=== PATIENT | female | born 1980 | race Caucasian/White ===

== ENCOUNTER → 2018-12-27 | Outpatient (CLI) | payer BC ==
[~2018-12-27] MED LIST: ACET-789 PO; ACET325T49 PO; ACIPHEX; ALBU0.632 IH; ALBU17AE23 IH; ALBU17AE3 IH; ALPR0.2550 PO; BENZ200C25 PO; Bentyl; CEFD300C3 PO; CYCL10TA9 PO; DEPO PROVERA IM; DEXL30CA2 PO; DICY20TA10 PO; FLUT1DIS26 IH; Flagyl; LORA10TA7 PO; LUBI8CAP2 PO; Lactulose; Loratadine; METH4TAB PO; METR500T PO; MONT10TA21 PO; MULT-608 PO; MVI; NABU750T PO; NAPR-243 PO; NORT25CA PO; ORPH100T PO; PAMELOR; PNT40TEC PO; PRM25T PO; Phenergan; RABE20TA PO; SCR1T1 PO; TRAM50TA2 PO; Tramadol; Xanax; acyclovir PO
[2018-12-27 11:03] LABS: BASOPHILS % (AUTO) 0 % (0-10); EOSINOPHILS # (AUTO) 0.1 10^3/uL (0.0-0.3); EOSINOPHILS % (AUTO) 2 % (0-10); HEMATOCRIT 37 % (35-52); HEMOGLOBIN 12.5 G/DL (11.5-16.0); LYMPHOCYTES # (AUTO) 1.3 X 10^3 (1.0-4.0); LYMPHOCYTES % (AUTO) 25 % (12-44); MEAN CORPUSCULAR HEMOGLOBIN 28 PG (25-34); MEAN CORPUSCULAR HGB CONC 34 G/DL (32-36); MEAN CORPUSCULAR VOLUME 81 FL (80-99); MEAN PLATELET VOLUME 10.1 FL (7.4-10.4); MONOCYTES # (AUTO) 0.5 X 10^3 (0.0-1.0); MONOCYTES % (AUTO) 10 % (0-12); NEUTROPHILS # (AUTO) 3.4 X 10^3 (1.8-7.8); NEUTROPHILS % (AUTO) 63 % (42-75); PLATELET COUNT 340 10^3/uL (130-400); RED CELL DISTRIBUTION WIDTH 13.8 % (10.0-14.5); WHITE BLOOD COUNT 5.3 10^3/uL (4.3-11.0)
--- NOTE | 2018-12-27 11:54 | Diagnostic Imaging Report ---
EXAMINATION: PA and lateral chest 11:28 AM. INDICATION: Cough. FINDINGS: The heart size is within normal limits and stable when compared to 11/18/2014. The lungs are clear. There is no sign of failure, pneumonia or pleural effusion. Mediastinum is not widened. The osseous structures are intact. The levoscoliosis of the lower thoracic spine seen previously is again evident and no different. IMPRESSION: There is no evidence for active disease. When compared to the prior study, there has been no significant change. Dictated by: Dictated on workstation # [id number]
== END ==
LOC: LAB 10:39
PROVIDERS: ATTEND Nurse Practitioner Family
DX: R05 Cough (principal)
CPT/HCPCS: 36415; 71046; 85025

== ENCOUNTER → 2020-06-27 | Outpatient (CLI) | payer BC, OTHER ==
--- NOTE | 2020-06-27 14:55 | Diagnostic Imaging Report ---
EXAMINATION: CT Abdomen Pelvis without contrast. TECHNIQUE: Multiple contiguous axial images were obtained through the abdomen and pelvis without the use of intravenous contrast. All CT scans use one or more of the following dose optimizing techniques: automated exposure control, MA and/or KvP adjustment based on a patient size and exam type, or iterative reconstruction. HISTORY: Left flank pain COMPARISON: 01/07/2012 FINDINGS: Limited views of the lower thorax are unremarkable. The liver is normal without focal lesion. There is no biliary ductal dilation. Tiny gallstone is present. Pancreas is normal. Spleen is normal. Adrenal glands are normal. The kidneys are normal. There is no hydronephrosis. Urinary bladder is normal. No renal or ureteral stones are seen. There are few phleboliths in pelvis. Visualized bowel is normal in caliber without obstruction or inflammation. There is a small fat-containing umbilical hernia. No free fluid or air. No abdominal or pelvic lymphadenopathy. Aorta is normal in caliber without aneurysm. There are no suspicious osseus lesions. IMPRESSION: 1. No acute abnormality in the abdomen or pelvis. No renal or ureteral stones. Dictated by: Dictated on workstation # [id number]
== END ==
LOC: RAD FS 14:20
PROVIDERS: ATTEND Nurse Practitioner Family
DX: R10.32 Left lower quadrant pain (principal); R31.9 Hematuria, unspecified
CPT/HCPCS: 74176

== ENCOUNTER → 2020-12-01 | Outpatient (CLI) | payer OTHER ==
--- NOTE | 2020-12-01 13:56 | Diagnostic Imaging Report ---
INDICATION: Shortness of breath. TIME OF EXAM: 1:43 PM CORRELATION is made with prior chest 12/27/2018. FINDINGS: The heart size is normal. The pulmonary vascularity is unremarkable. The lungs are clear. No infiltrate, effusion or pneumothorax is detected. IMPRESSION: No acute cardiopulmonary process is detected. Dictated by: Dictated on workstation # [id number]
== END ==
LOC: RAD FS 13:39
PROVIDERS: ATTEND Nurse Practitioner Family
DX: J45.41 Moderate persistent asthma with (acute) exacerbation (principal)
CPT/HCPCS: 71046

== ENCOUNTER → 2021-01-23 | Outpatient (CLI) | payer OTHER ==
--- NOTE | 2021-01-23 18:53 | Diagnostic Imaging Report ---
PROCEDURE: CT sinuses without contrast TECHNIQUE: Multiple contiguous axial images were obtained through the sinuses without the use of intravenous contrast. Coronal and sagittal reformations were then performed. Auto Exposure Controls were utilized during the CT exam to meet ALARA standards for radiation dose reduction. INDICATION: Chronic sinusitis. FINDINGS: Paranasal sinuses are well-aerated. There are no air-fluid levels. There is a 10 mm polyp along the posterior medial wall of the right maxillary sinus. The nasal septum is midline. Nasal turbinates appear normal. The ostiomeatal complexes are normal. No bony abnormalities. IMPRESSION: There is a solitary polyp along the posterior medial wall of the right maxillary sinus. Paranasal sinuses otherwise are clear. Dictated by: Dictated on workstation # [id number]
== END ==
LOC: RAD FS 15:00
PROVIDERS: ATTEND Plastic Surgery Plastic Surgery Within the Head and Neck
DX: J33.8 Other polyp of sinus (principal); J32.9 Chronic sinusitis, unspecified
CPT/HCPCS: 70486

== ENCOUNTER 2021-01-29 12:55 | Outpatient (CLI) | payer OTHER ==
[~2021-01-29] VITALS: Ht 162.6 cm; Wt 88.6 kg
[2021-01-29] MEDS ORDERED: POTA-51 PO (13:35)
[2021-01-29] MEDS ORDERED: RT-ALBUINH INH (13:35)
[2021-01-29] MEDS ORDERED: BUDE10.2 IH (13:35)
[2021-01-29] MEDS ORDERED: CALC-654 PO (13:35)
[2021-01-29] MEDS ORDERED: ALBU0.63 IH (13:35)
[2021-01-29] MEDS ORDERED: FLUO40CA12 PO (13:35)
[2021-01-29] MEDS ORDERED: CELE200C PO (13:35)
[2021-01-29] MEDS ORDERED: MONT10TA32 PO (13:35)
[2021-01-29] MEDS ORDERED: LORA10TA7 PO (13:35)
[2021-01-29] MEDS ORDERED: PANT40TA52 PO (13:35)
[2021-01-31] MEDS ORDERED: ACHD5005 PO (11:40)
[2021-01-31] MEDS ORDERED: DOCU-143 PO (11:40)
== END 2021-01-29 13:48 | disposition home or self-care (01) ==
LOC: PREOP 12:55
PROVIDERS: ATTEND Surgery
DX: Z01.818 Encounter for other preprocedural examination (principal)

== ENCOUNTER 2021-01-31 09:59 | Day surgery (SDC) | payer OTHER ==
[~2021-01-31] VITALS: Ht 162 cm; Wt 88.6 kg
[2021-01-31] VITALS (11 sets, daily range): BP systolic 114–134; BP diastolic 64–85
[~2021-01-31 09:59] MED LIST changes: +ALBU0.63 IH; +BUDE10.2 IH; +CALC-654 PO; +CELE200C PO; +FLUO40CA12 PO; +MONT10TA32 PO; +PANT40TA52 PO; +POTA-51 PO; +RT-ALBUINH INH
[2021-01-31] MEDS ORDERED: LIDOCAINE/EPI 1%-1:100,000 (XYLOCAINE) 20ML ONE (10:03)
[2021-01-31] MEDS ORDERED: IOPAMIDOL 61% 30 ML (ISOVUE 300) VIAL ONE (10:03)
[2021-01-31] MEDS ORDERED: LIDOCAINE PF 2% 5 ML (XYLOCAINE) VIAL ONE (10:06)
[2021-01-31] MEDS ORDERED: ONDANSETRON 4 MG/2 ML (SDV) Z0FRAN ONE (10:06)
[2021-01-31] MEDS ORDERED: proPOfol 200 MG/20 ML (DIPRIVAN) VIAL IV ONE (10:06)
[2021-01-31] MEDS ORDERED: ROCURONIUM 10 MG/ML 5 ML SYRINGE IV ONE (10:06)
[2021-01-31] MEDS ORDERED: MIDAZOLAM 2 MG/2 ML (VERSED) VIAL ONE (10:07)
[2021-01-31] MEDS ORDERED: fentaNYL INJ 100 MCG/2 ML AMP ONE (10:07)
--- NOTE | 2021-01-31 10:16 | Progress Note-Pre Operative ---
Pre-Operative Progress Note H&P Reviewed The H&P was reviewed, patient examined and no changes noted. Date Seen by Provider: January 31, 2021 Time Seen by Provider: 10:16 Date H&P Reviewed: January 31, 2021 Time H&P Reviewed: 10:16 Pre-Operative Diagnosis: symptomatic cholelithiasis MONICA GUILLAUME DO January 31, 2021 10:16
[2021-01-31] MEDS ORDERED: ceFAZolin 2 GM IV Premixed 50 ML IV ONE (10:30)
[2021-01-31] MEDS ORDERED: LACTATED RINGERS 1,000 ML IV PRN (10:30)
[2021-01-31 10:37] LABS: BASOPHILS % (AUTO) 1 % (0-10); EOSINOPHILS % (AUTO) 1 % (0-10); HEMATOCRIT 40 % (35-52); HEMOGLOBIN 12.9 g/dL (11.5-16.0); LYMPHOCYTES # (AUTO) 1.5 10^3/uL (1.0-4.0); LYMPHOCYTES % (AUTO) 28 % (12-44); MEAN CORPUSCULAR HEMOGLOBIN 27 pg (25-34); MEAN CORPUSCULAR HGB CONC 32 g/dL (32-36); MEAN CORPUSCULAR VOLUME 85 fL (80-99); MEAN PLATELET VOLUME 9.4 fL (9.0-12.2); MONOCYTES # (AUTO) 0.6 10^3/uL (0.0-1.0); MONOCYTES % (AUTO) 11 % (0-12); NEUTROPHILS # (AUTO) 3.2 10^3/uL (1.8-7.8); NEUTROPHILS % (AUTO) 60 % (42-75); PLATELET COUNT 297 10^3/uL (130-400); WHITE BLOOD COUNT 5.4 10^3/uL (4.3-11.0)
[2021-01-31] MEDS ORDERED: SEVOFLURANE (ULTANE) 15 ML INHAL SOLN ONE ×2 (11:06→11:40)
[2021-01-31] MEDS ORDERED: GLYCOPYRROLATE 0.2 MG/ML (ROBINUL) 2 ML VIAL ONE (11:35)
[2021-01-31] MEDS ORDERED: NEOSTIGMINE 3 MG/3 ML VIAL ONE (11:35)
--- NOTE | 2021-01-31 11:39 | Progress Note-Post Operative ---
Post-Operative Progess Note Surgeon (s)/Personnel Technician (s) Surgeon MONICA GUILLUAME DO Personnel Technician: Dr. Abrams to assist in retraction dissection and closure. Pre-Operative Diagnosis symptomatic cholelithiasis Post-Operative Diagnosis same Procedure & Operative Findings Date of Procedure 01/31/21 Procedure Performed/Findings PROCEDURE: Laparoscopic cholecystectomy with intraoperative cholangiogram. COMPLICATIONS: None. PROCEDURE: The patient was taken to the operating suite and was prepped and draped in sterile fashion. A surgical pause was performed. Just superior to the umbilicus, a 12 mm incision was made. Dissection was taken down to the fascia, which was then scored and grasped with a Jewel and the abdomen was then entered. A 0 Vicryl suture was placed in a vnsijb-gw-zkztr fashion and a Moss trocar was placed and secured. Pneumoperitoneum was achieved. A 5mm trochar place in the subxyphoid and 2 in the right upper quadrant. The gallbladder was then grasped and elevated. Adhesion to the liver were taken down using [place] with cautery. The cystic duct, and cystic artery were then dissected out. Clip was placed on the distal portion of the cystic duct which was then partially transected. An arrow catheter was inserted into the duct. The cholangiogram was then performed. No filing defects and contrast made its way into the duodenum. Catheter removed. Clips were placed on proximal portion of the cystic duct and then the duct was then transected. Clips were placed along the proximal and distal portion of the cystic artery which was then transected. Hook cautery was used to dissect the gallbladder from the gallbladder fossa achieving hemostasis. The gallbladder was placed in an Endobag and removed through the 12 mm trocar site. The abdomen was then reinspected. Copious amounts of irrigation were used to irrigate the abdomen and there were no signs of active bleeding. Hemostasis had been achieved. The 12 mm fascial defect was then closed with 0 Vicryl suture that had been placed in a dxkzaa-dk-xmbym fashion. The abdomen was then desufflated, the trocars were removed. The abdomen was then washed and dried. The skin was then closed using 4-0 Monocryl in a subcuticular fashion. The abdomen was washed and dried and Skin Affix was place over incisions. Patient tolerated the procedure well without any complications and was taken to the recovery room in stable condition. Anesthesia Type general Estimated Blood Loss Estimated blood loss (mL): minimal Specimens/Packing Specimens Removed gallbladder MONICA GUILLAUME DO January 31, 2021 11:39
[2021-01-31] MEDS ORDERED: ACHD5005 PO (11:40)
[2021-01-31] MEDS ORDERED: DOCU-143 PO (11:40)
--- NOTE | 2021-01-31 11:42 | Discharge Inst-Simple/Standard ---
Discharge Inst-Standard Discharge Medications New, Converted or Re-Newed RX: Transmitted to Pharmacy Patient Instructions/Follow Up Plan of Care/Instructions/FU: 2 weeks Jelani Activity as Tolerated: No Discharge Diet: Regular Diet Other Inst to Patient Follow up Appt: Make appointment for 2 weeks. Instructions: No lifting greater than 10 pounds. No strenuous activity. May shower in 24 hours, no tub bath or soaking. Use incentive spirometer at home as directed. No Smoking Skin/Wound Care: You have special glue over incision, it will fall off on it's own. Symptoms to Report: Appetite Changes, Extremity Discoloration, Numbness/Tingling, Swelling Increased, Bleeding Excessive, Eyesight Changes, Pain Increased, Urine Color Change, Constipation(Persistent), Fever over 101 degree F, Pain/Pressure in chest, Urinating Difficulty, Cough Up/Vomit Blood, Heart Beat Irreg/Pounding, Pain/Pressure in jaw, Vaginal Bleeding Increase, Cramps in feet or legs, Lightheadedness, Pain/Pressure in shoulder, Diarrhea(Persistent), Memory Changes Suddenly, Questions/Concerns, Weight gain consecutive days, Dizziness/Fainting, Nausea/Vomiting, Shortness of Breath, Weight gain over 2 pounds. If eyes or skin turn yellow notify physician. If questions or concerns contact your physician Or seek help at emergency department. MONICA GUILLAUME DO January 31, 2021 11:42
--- NOTE | 2021-01-31 11:55 | Anesthesia-General Post-Op ---
General Patient Condition Mental Status/LOC: Same as Preop Cardiovascular: Satisfactory Nausea/Vomiting: Absent Respiratory: Satisfactory Pain: Controlled Complications: Absent Post Op Complications Complications None Follow Up Care/Instructions Patient Instructions None needed. Anesthesia/Patient Condition Patient Condition Patient is doing well, no complaints, stable vital signs, no apparent adverse anesthesia problems. No complications reported per nursing. NIKOLAY ORDONEZ CRNA January 31, 2021 11:55
[2021-01-31] MEDS ORDERED: MEPERIDINE (DEMEROL) INJ 50 MG/ML IVP ONE (12:00)
[2021-01-31] MEDS ORDERED: morphine INJ 10 MG/ML 1ML (SYR OR VIAL) IVP ONE (12:00)
[2021-01-31] MEDS ORDERED: HYDROmorphone 2 MG/ML VIAL (DILAUDID) IV ONE (12:00)
[2021-01-31] MEDS ORDERED: ONDANSETRON 4 MG/2 ML (SDV) Z0FRAN IVP PRN (12:00)
[2021-01-31] MEDS ORDERED: PROMETHAZINE INJ 25 MG/ML (PHENERGAN) AMP IVP ONE (12:00)
--- NOTE | 2021-01-31 13:36 | Diagnostic Imaging Report ---
Indication: Fluoroscopy during intraoperative cholangiogram. Fluoroscopy was provided in the OR during intraoperative cholangiogram. 11 seconds of fluoroscopy time was utilized. 58 images were obtained. Images demonstrate contrast being injected via the cystic duct remnant. Intrahepatic and extra hepatic bile ducts are normal caliber. There are no filling defects. Contrast flows into the duodenum. IMPRESSION: Fluoroscopy during intraoperative cholangiogram. Dictated by: Dictated on workstation # [id number]
== END 2021-01-31 13:35 ==
LOC: SDC 09:59
PROVIDERS: ATTEND Surgery
DX: K81.1 Chronic cholecystitis (principal); K21.9 Gastro-esophageal reflux disease without esophagitis; J45.909 Unspecified asthma, uncomplicated; F31.9 Bipolar disorder, unspecified; F41.9 Anxiety disorder, unspecified; Z79.899 Other long term (current) drug therapy; Z88.8 Allergy status to other drugs, medicaments and biological substances
CPT/HCPCS: 36415; 76000; 84703; 85025; 87081; 88304; 94664

== ENCOUNTER → 2021-04-16 | Outpatient (CLI) | payer OTHER ==
[~2021-04-16] MED LIST changes: +ACHD5005 PO; +DOCU-143 PO
--- NOTE | 2021-04-16 15:53 | Diagnostic Imaging Report ---
PROCEDURE: CT head without contrast. TECHNIQUE: Multiple contiguous axial images were obtained through the brain without the use of intravenous contrast. Auto Exposure Controls were utilized during the CT exam to meet ALARA standards for radiation dose reduction. INDICATION: Syncope and tremor. CT HEAD: CT images of the head were obtained. FINDINGS: Ventricles and sulci are within normal limits for size. There is no intracranial hemorrhage identified. There is no abnormal mass effect or shift of midline structures. IMPRESSION: Unremarkable CT of the head. Dictated by: Dictated on workstation # [id number]
== END ==
LOC: RAD FS 15:33
PROVIDERS: ATTEND Nurse Practitioner Family
DX: R55 Syncope and collapse (principal); R25.1 Tremor, unspecified
CPT/HCPCS: 70450

== ENCOUNTER → 2021-04-16 | Outpatient (CLI) | payer OTHER ==
[2021-04-16 09:16] LABS: ALBUMIN 4.2 GM/DL (3.2-4.5); BILIRUBIN,TOTAL 0.2 MG/DL (0.1-1.0); CALCIUM 8.8 MG/DL (8.5-10.1); CREATININE SERUM 0.85 MG/DL (0.60-1.30); MAGNESIUM 2.1 MG/DL (1.6-2.4); POTASSIUM 3.6 MMOL/L (3.6-5.0); TOTAL PROTEIN 6.9 GM/DL (6.4-8.2)
[2021-04-16 09:25] LABS: BASOPHILS % (AUTO) 1 % (0-10); EOSINOPHILS # (AUTO) 0.1 10^3/uL (0.0-0.3); EOSINOPHILS % (AUTO) 1 % (0-10); HEMATOCRIT 36 % (35-52); HEMOGLOBIN 11.5 G/DL (11.5-16.0); LYMPHOCYTES # (AUTO) 1.6 X 10^3 (1.0-4.0); LYMPHOCYTES % (AUTO) 24 % (12-44); MEAN CORPUSCULAR HEMOGLOBIN 27 PG (25-34); MEAN CORPUSCULAR HGB CONC 32 G/DL (32-36); MEAN CORPUSCULAR VOLUME 84 FL (80-99); MEAN PLATELET VOLUME 9.5 FL (7.4-10.4); MONOCYTES # (AUTO) 0.6 X 10^3 (0.0-1.0); MONOCYTES % (AUTO) 10 % (0-12); NEUTROPHILS # (AUTO) 4.3 X 10^3 (1.8-7.8); NEUTROPHILS % (AUTO) 65 % (42-75); PLATELET COUNT 328 10^3/uL (130-400); WHITE BLOOD COUNT 6.7 10^3/uL (4.3-11.0)
== END ==
LOC: LAB FS 08:23
PROVIDERS: ATTEND Nurse Practitioner Family
DX: E87.6 Hypokalemia (principal); D64.9 Anemia, unspecified; R55 Syncope and collapse
CPT/HCPCS: 36415; 80053; 83735; 84443; 85025

== ENCOUNTER → 2021-04-27 | Outpatient (CLI) | payer OTHER | LOC: CARD 08:00 | PROVIDERS: ATTEND Nurse Practitioner Family | DX: R00.2 Palpitations (principal); R42 Dizziness and giddiness | CPT/HCPCS: 93225; 93226 ==

== ENCOUNTER 2021-08-09 09:32 | Outpatient (CLI) | payer OTHER ==
[~2021-08-09] VITALS: Ht 162.6 cm; Wt 88.6 kg
[~2021-08-09 09:32] MED LIST changes: +ACETAMINOPHEN 500 MG TAB (TYLENOL) PO PRN; +CASIRIVIMAB/IMDEVIMAB 1,200 MG in NS (IVPB) 250 ML IV ONE; +EPINEPHrine INJECTION 1 MG/ML AMP IM PRN; +ONDANSETRON 4 MG/2 ML (SDV) Z0FRAN IV PRN; +diphenhydrAMINE 50 MG/ML INJ (BENADRYL) IV PRN
[2021-08-09 09:34] VITALS: BP 129/67
[2021-08-09 11:00] VITALS: BP 127/53
== END 2021-08-09 11:00 | disposition home or self-care (01) ==
LOC: INFUSION 09:32
PROVIDERS: ATTEND Nurse Practitioner Family
DX: U07.1 COVID-19 (principal)

== ENCOUNTER 2021-11-09 17:08 | Observation (INO) | payer OTHER ==
[~2021-11-09] VITALS: Ht 162.6 cm; Wt 87.5 kg
[~2021-11-09 17:08] MED LIST changes: -ACETAMINOPHEN 500 MG TAB (TYLENOL) PO PRN; -CASIRIVIMAB/IMDEVIMAB 1,200 MG in NS (IVPB) 250 ML IV ONE; -EPINEPHrine INJECTION 1 MG/ML AMP IM PRN; +MONT-40 PO; -MONT10TA32 PO; -ONDANSETRON 4 MG/2 ML (SDV) Z0FRAN IV PRN; -diphenhydrAMINE 50 MG/ML INJ (BENADRYL) IV PRN
--- NOTE | 2021-11-09 17:42 | Progress Note-Pre Operative ---
Pre-Operative Progress Note H&P Reviewed The H&P was reviewed, patient examined and no changes noted. Date Seen by Provider: Nov 09, 2021 Time Seen by Provider: 18:00 Date H&P Reviewed: Nov 09, 2021 Time H&P Reviewed: 18:00 Pre-Operative Diagnosis: acute appendicitis. CLARK DEMPSEY MD Nov 09, 2021 17:42
--- NOTE | 2021-11-09 17:43 | ED Abdominal Pain ---
General Stated Complaint: APPENDICITIS Source of Information: Patient Exam Limitations: No Limitations (CATRACHITO ACHARYA APRN) History of Present Illness Date Seen by Provider: Nov 09, 2021 Time Seen by Provider: 17:43 Initial Comments To ER by private vehicle from [facility] where she is employed. She developed some abdominal pain and underwent an outpatient abdomen pelvis CT today showing tip of her appendix being mildly distended at 9 mm with mild surrounding inflammation. She was referred here to the emergency room. History of anxiety, depression, irritable bowel syndrome, hypokalemia, seasonal allergies, iron deficiency anemia and asthma. She states that she is currently on Macrobid for UTI. Timing/Duration: 1-2 Days Severity/Quality: Moderate Location: RLQ, Generalized Abdomen Radiation: No Radiation Associated Symptoms: Nausea/Vomiting (CATRACHITO ACHARYA APRN) Allergies and Home Medications Allergies Coded Allergies: formoterol (Verified Allergy, Unknown, Anaphylaxis, 01/31/21) metoprolol (Verified Allergy, Unknown, R side paralysis, 01/31/21) mometasone furoate (Verified Allergy, Unknown, Anaphylaxis, 01/31/21) Patient Home Medication List Home Medication List Reviewed: Yes (CATRACHITO ACHARYA APRN) Albuterol Sulfate (Ventolin Hfa) 1 Puff Puff, 2 PUFF INH Q4H PRN for WHEEZING, (Reported) Entered as Reported by: JASMINA BASILIO on 01/29/21 1335 Albuterol Sulfate (Albuterol Sulfate) 0.63 Mg/3 Ml Vial.neb, 0.63 MG IH Q6H PRN for SHORTNESS OF BREATH, (Reported) Entered as Reported by: JASMINA BASILIO on 01/29/21 1335 Budesonide/Formoterol Fumarate (Symbicort 160-4.5 Mcg Inhaler) 10.2 Gm Hfa.aer.ad, 2 PUFF IH BID, (Reported) Entered as Reported by: JASMINA BASILIO on 01/29/21 1335 Calcium Carbonate/Vitamin D3 (Calcium 500 + D Tablet) 1 Each Tablet, 1 EACH PO DAILY, (Reported) Entered as Reported by: JASMINA BASILIO on 01/29/21 1335 Celecoxib (Celebrex) 200 Mg Capsule, 200 MG PO DAILY, (Reported) Entered as Reported by: JASMINA BASILIO on 01/29/21 1335 Docusate Sodium (Colace) 100 Mg Capsule, 100 MG PO DAILY Prescribed by: MONICA GUILLAUME on 01/31/21 1140 Fluoxetine HCl (Prozac) 40 Mg Capsule, 40 MG PO DAILY, (Reported) Entered as Reported by: JASMINA BASILIO on 01/29/21 1335 Hydrocodone/Acetaminophen (Hydrocodone-Acetamin 5-325 mg) 1 Each Tablet, 1 EACH PO Q4H PRN for PAIN-MODERATE (5-7) Prescribed by: MONICA GUILLAUME on 01/31/21 1141 Hydrocodone/Acetaminophen (Hydrocodone-Acetamin 7.5-325) 1 Each Tablet, 1 EACH PO Q4H Prescribed by: CLARK SOLITARIO on 11/09/21 1746 Loratadine (Loratadine) 10 Mg Tablet, 10 MG PO DAILY, (Reported) Entered as Reported by: JASMINA BASILIO on 01/29/21 1335 Montelukast Sodium (Montelukast Sodium) 10 Mg Tablet, 10 MG PO HS, (Reported) Entered as Reported by: JASMINA BASILIO on 01/29/21 1335 Pantoprazole Sodium (Pantoprazole Sodium) 40 Mg Tablet.dr, 40 MG PO DAILY, (Reported) Entered as Reported by: JASMINA BASILIO on 01/29/21 1335 Potassium Chloride (Potassium Chloride) 20 Meq Tablet.er, 20 MEQ PO BID, (Reported) Entered as Reported by: JASMINA BASILIO on 01/29/21 1335 [Depo Provera] , 150 MG IM Q 3 MONTHS, (Reported) Entered as Reported by: AMEE JACKSON on 01/08/12 1611 Review of Systems Review of Systems Constitutional: see HPI; No chills, No fever EENTM: No Symptoms Reported Respiratory: No Symptoms Reported Cardiovascular: No Symptoms Reported Gastrointestinal: See HPI, Abdominal Pain, Nausea, Vomiting Genitourinary: No Symptoms Reported Musculoskeletal: no symptoms reported Skin: no symptoms reported Psychiatric/Neurological: No Symptoms Reported Endocrine: No Symptoms Reported Hematologic/Lymphatic: No Symptoms Reported (CATRACHITO ACHARYA APRN) Past Ltnyete-Gxefke-Lxnvje Hx Seasonal Allergies Seasonal Allergies: No (CATRACHITO ACHARYA APRN) Past Medical History Surgeries: Yes (laminectomy, ) Orthopedic Respiratory: Yes Asthma, Emphysema Cardiac: No Neurological: No (seizure when younger, none since childhood) Reproductive Disorders: No Genitourinary: No Gastrointestinal: Yes Gastroesophageal Reflux, Chronic Constipation, Gall Bladder Disease Musculoskeletal: Yes (SCIATICA, "FAILED BACK SURGERY" ) Arthritis, Chronic Back Pain Endocrine: No HEENT: No Cancer: No Psychosocial: Yes (EXTENSIVE PSYCH ISSUES) Anxiety, Bipolar, Depression Integumentary: No Blood Disorders: No (CATRACHITO ACHARYA APRN) Physical Exam Vital Signs Vital Signs - First Documented 11/09/21 18:00 Temp 36.5 Pulse 92 Resp 18 B/P (MAP) 121/87 (98) Pulse Ox 97 O2 Delivery Room Air (ONELIA EAST MD) Vital Signs Capillary Refill : (CATRACHITO ACHARYA APRN) Height/Weight/BMI Height: 5'4.00" Weight: 175lbs. oz. 79.025073ua; 33.76 BMI Method:Stated General Appearance: WD/WN, no apparent distress HEENT: PERRL/EOMI, normal ENT inspection Respiratory: normal breath sounds, no respiratory distress, no accessory muscle use Cardiovascular: regular rate, rhythm, no murmur Gastrointestinal: normal bowel sounds, soft, tenderness Extremities: normal range of motion, non-tender Neurologic/Psychiatric: alert, normal mood/affect, oriented x 3 Skin: normal color, warm/dry (CATRACHITO ACHARYA APRN) Progress/Results/Core Measures Results/Orders Lab Results Laboratory Tests Test 11/09/21 18:08 Range/Units White Blood Count 8.4 4.3-11.0 10^3/uL Red Blood Count 4.96 3.80-5.11 10^6/uL Hemoglobin 13.2 11.5-16.0 g/dL Hematocrit 40 35-52 % Mean Corpuscular Volume 81 80-99 fL Mean Corpuscular Hemoglobin 27 25-34 pg Mean Corpuscular Hemoglobin Concent 33 32-36 g/dL Red Cell Distribution Width 13.1 10.0-14.5 % Platelet Count 343 130-400 10^3/uL Mean Platelet Volume 10.2 9.0-12.2 fL Immature Granulocyte % (Auto) 0 % Neutrophils (%) (Auto) 57 42-75 % Lymphocytes (%) (Auto) 31 12-44 % Monocytes (%) (Auto) 11 0-12 % Eosinophils (%) (Auto) 1 0-10 % Basophils (%) (Auto) 1 0-10 % Neutrophils # (Auto) 4.8 1.8-7.8 10^3/uL Lymphocytes # (Auto) 2.6 1.0-4.0 10^3/uL Monocytes # (Auto) 0.9 0.0-1.0 10^3/uL Eosinophils # (Auto) 0.1 0.0-0.3 10^3/uL Basophils # (Auto) 0.1 0.0-0.1 10^3/uL Immature Granulocyte # (Auto) 0.0 0.0-0.1 10^3/uL Sodium Level 139 135-145 MMOL/L Potassium Level 3.4 L 3.6-5.0 MMOL/L Chloride Level 109 H 98-107 MMOL/L Carbon Dioxide Level 19 L 21-32 MMOL/L Anion Gap 11 5-14 MMOL/L Blood Urea Nitrogen 6 L 7-18 MG/DL Creatinine 0.80 0.60-1.30 MG/DL Estimat Glomerular Filtration Rate 95 BUN/Creatinine Ratio 8 Glucose Level 82 70-105 MG/DL Calcium Level 9.3 8.5-10.1 MG/DL Corrected Calcium 8.9 8.5-10.1 MG/DL Total Bilirubin 0.2 0.1-1.0 MG/DL Aspartate Amino Transf (AST/SGOT) 21 5-34 U/L Alanine Aminotransferase (ALT/SGPT) 28 0-55 U/L Alkaline Phosphatase 86 40-136 U/L C-Reactive Protein High Sensitivity 0.66 H 0.00-0.50 MG/DL Total Protein 7.7 6.4-8.2 GM/DL Albumin 4.5 3.2-4.5 GM/DL Lipase 32 8-78 U/L (ONELIA EAST MD) Vital Signs/I&O 11/09/21 18:00 Temp 36.5 Pulse 92 Resp 18 B/P (MAP) 121/87 (98) Pulse Ox 97 O2 Delivery Room Air (ONELIA EAST MD) Departure Communication (Admissions) Spoke with Dr. Solitario. We will keep her on clear liquids overnight, n.p.o. after midnight, Cipro and Flagyl, pain and nausea control overnight with a tentative plan for laparoscopic appendectomy tomorrow at 10:45 AM. Updated the patient on this plan and she is agreeable. (CATRACHITO ACHARYA APRN) Impression Primary Impression: Appendicitis Disposition: ADMITTED INPATIENT Condition: Stable Admissions Decision to Admit Reason: Admit from ER (General) Decision to Admit/Date: Nov 09, 2021 Time/Decision to Admit Time: 18:39 (CATRACHITO ACHARYA APRN) Departure-Patient Inst. Referrals: [facility] (PCP) Primary Care Physician EMMANUEL SILVA (Family) Primary Care Physician Scripts Hydrocodone/Acetaminophen (Hydrocodone-Acetamin 7.5-325) 1 Each Tablet 1 EACH PO Q4H, #35 TAB Prov: CLARK SOLITARIO MD 11/09/21 ATTENDING PHYSICIAN NOTE: I was physically present as attending physician in the emergency department during the care of this patient, but I was not directly involved in the decision making or delivery of care for this patient. (ONELIA EAST MD) CATRACHITO ACHARYA APRN Nov 09, 2021 17:43 ONELIA EAST MD Nov 10, 2021 08:21
[2021-11-09] MEDS ORDERED: morphine INJ 10 MG/ML 1ML (SYR OR VIAL) IVP PRN (17:45)
[2021-11-09] MEDS ORDERED: ONDANSETRON 4 MG/2 ML (SDV) Z0FRAN IVP PRN (17:45)
[2021-11-09] MEDS ORDERED: ACETAMINOPHEN 325 MG TABLET PO PRN (17:45)
[2021-11-09] MEDS ORDERED: HYDR-3817 PO (17:46)
--- NOTE | 2021-11-09 17:47 | Discharge Inst-Surgical ---
D/C Lap Instructions-ROSELYN New, Converted, or Re-Newed RX: RX on Chart Follow Up Appt in 2 weeks Activity as tolerated No driving for 24 hours No driving while on pain medications Incentive Spirometry use every 2 hours while awake Regular Diet Symptoms to Report: Fever over 101 degree F, Nausea/Vomiting Infection Signs and Symptoms to report: Increased redness, Foul odor of wound, Increased drainage Bathing instructions: May shower Operative Area Clean/Dry; Keep incision clean/dry If any problems/questions: Contact your physician or go to Emergency Room CLARK DEMPSEY MD Nov 09, 2021 17:47
--- NOTE | 2021-11-09 18:06 | HISTORY AND PHYSICAL ---
DATE OF SERVICE: ATTENDING DIRECTOR [employer] SAL[employer]: Mari Green APRN. HISTORY OF PRESENT ILLNESS: The patient is a 41-year-old female, who presented to [facility] with pain in the right lower abdominal quadrant for the past two days. She states that this was more in the periumbilical region; however, became more localized towards the right lower abdominal quadrant. A CT scan was performed, which did show some mild inflammation of the tip of the appendix consistent with an early acute appendicitis. She does not report any fever, no chills as well as no vomiting. She is otherwise eating well. PAST MEDICAL HISTORY: Asthma, gastroesophageal reflux disease, degenerative joint disease, and depression. PAST SURGICAL HISTORY: None known. ALLERGIES: MOMETASONE FUROATE, METOPROLOL, and FORMOTEROL. SOCIAL HISTORY: Negative smoke and negative alcohol. FAMILY HISTORY: Noncontributory. REVIEW OF SYSTEMS: This is a well-nourished female, currently in no acute distress. She is not experiencing any shortness of breath or difficulty in breathing. No chest pain, palpitations, diaphoresis. No nausea, vomiting with pain in the right lower abdominal quadrant at McBurney's point. Voluntary guarding, no rebound. No nausea, vomiting, no diarrhea or constipation, no red blood per rectum and no dark tarry stools. No fever, chills, no recent inadvertent weight loss. PHYSICAL EXAMINATION: VITAL SIGNS: Stable, afebrile. CHEST: Clear. Good breath sounds. Few scattered wheezes bilaterally. HEART: Regular, no murmurs. EXTREMITIES: No lower extremity edema and negative Homans sign. HEENT: No scleral icterus. NECK: No cervical lymphadenopathy. ABDOMEN: Soft and nondistended. There is pain in the right lower abdominal quadrant at McBurney's point with voluntary guarding; however, no rebound. There were no palpable hernias. LABORATORY DATA: WBC 6.7, hemoglobin 11.5, hematocrit 36, and platelets 328. BUN 7 and creatinine 0.85. Liver function enzymes normal. HCG negative. Urinalysis positive for leukocyte esterase and large amounts of bacteria. ASSESSMENT AND PLAN: A 41-year-old female with early acute appendicitis and urinary tract infection. The natural history of appendiceal disease was explained to the patient and we will admit her, give adequate pain control, start antibiotics for her urinary tract infection as well as the appendicitis and we will also schedule a laparoscopic appendectomy on this admission. Job ID: [id number] DocumentID: [id number] Dictated Date: 11/09/2021 17:39:50 Cash Register Servicer Date: 11/09/2021 18:05:47 Dictated By: CLARK DEMPSEY MD
[2021-11-09 18:14] LABS: BASOPHILS # (AUTO) 0.1 10^3/uL (0.0-0.1); BASOPHILS % (AUTO) 1 % (0-10); EOSINOPHILS # (AUTO) 0.1 10^3/uL (0.0-0.3); EOSINOPHILS % (AUTO) 1 % (0-10); HEMATOCRIT 40 % (35-52); HEMOGLOBIN 13.2 g/dL (11.5-16.0); LYMPHOCYTES # (AUTO) 2.6 10^3/uL (1.0-4.0); LYMPHOCYTES % (AUTO) 31 % (12-44); MEAN CORPUSCULAR HEMOGLOBIN 27 pg (25-34); MEAN CORPUSCULAR HGB CONC 33 g/dL (32-36); MEAN CORPUSCULAR VOLUME 81 fL (80-99); MEAN PLATELET VOLUME 10.2 fL (9.0-12.2); MONOCYTES # (AUTO) 0.9 10^3/uL (0.0-1.0); MONOCYTES % (AUTO) 11 % (0-12); NEUTROPHILS # (AUTO) 4.8 10^3/uL (1.8-7.8); NEUTROPHILS % (AUTO) 57 % (42-75); PLATELET COUNT 343 10^3/uL (130-400); WHITE BLOOD COUNT 8.4 10^3/uL (4.3-11.0)
[2021-11-09] MEDS ORDERED: LACTATED RINGERS 1,000 ML IV SCH (18:15)
[2021-11-09] MEDS ORDERED: ONDANSETRON 4 MG/2 ML (SDV) Z0FRAN IVP ONE (18:15)
[2021-11-09] MEDS ORDERED: fentaNYL INJ 100 MCG/2 ML AMP IVP ONE (18:15)
[2021-11-09] MEDS ORDERED: CATHETER FLUSH 10 ML SYR IV PRN (18:45)
[2021-11-09 18:48] LABS: ALBUMIN 4.5 GM/DL (3.2-4.5); POTASSIUM 3.4 MMOL/L (3.6-5.0)
[2021-11-09 18:49] LABS: CALCIUM 9.3 MG/DL (8.5-10.1)
[2021-11-09 18:50] LABS: TOTAL PROTEIN 7.7 GM/DL (6.4-8.2)
[2021-11-09 18:52] LABS: BILIRUBIN,TOTAL 0.2 MG/DL (0.1-1.0)
[2021-11-09 18:54] LABS: CREATININE SERUM 0.8 MG/DL (0.60-1.30)
[2021-11-09 19:00] VITALS: BP 125/59
[2021-11-09] MEDS: metroNIDAZOLE 500MG/100ML IVPB 100 ML IV SCH (20:49)
[2021-11-09] MEDS: morphine INJ 10 MG/ML 1ML (SYR OR VIAL) IVP PRN (20:51)
[2021-11-09] MEDS: CIPROFLOXACIN IV 400MG/200ML 200 ML IV SCH (20:52)
[2021-11-09] MEDS: HYDROcodone/APAP 7.5 MG/325 MG (LORTAB, LORCET PLUS) TABLET PO PRN (21:59)
[2021-11-09] MEDS: CATHETER FLUSH 10 ML SYR IV SCH (22:29)
[2021-11-09 23:09] VITALS: BP 110/65
[2021-11-09] MEDS: LACTATED RINGERS 1,000 ML IV SCH (23:39)
[2021-11-10] VITALS (10 sets, daily range): BP systolic 96–143; BP diastolic 64–83
[2021-11-10] MEDS: morphine INJ 10 MG/ML 1ML (SYR OR VIAL) IVP PRN ×3 (01:45→13:29)
[2021-11-10] MEDS: HYDROcodone/APAP 7.5 MG/325 MG (LORTAB, LORCET PLUS) TABLET PO PRN ×2 (04:27→13:32)
[2021-11-10] MEDS: CATHETER FLUSH 10 ML SYR IV SCH ×2 (05:36→14:51)
[2021-11-10] MEDS: LACTATED RINGERS 1,000 ML IV SCH ×2 (07:38→15:07)
[2021-11-10] MEDS: metroNIDAZOLE 500MG/100ML IVPB 100 ML IV SCH (07:39)
[2021-11-10] MEDS ORDERED: PANTOPRAZOLE 40 MG (PROTONIX) TAB PO SCH (09:00)
[2021-11-10] MEDS: CIPROFLOXACIN IV 400MG/200ML 200 ML IV SCH (09:34)
[2021-11-10] MEDS ORDERED: LIDOCAINE/EPI 1%-1:200,000 (XYLOCAINE) 30 ML VIAL ONE (10:10)
[2021-11-10] MEDS ORDERED: MEPERIDINE (DEMEROL) INJ 50 MG/ML IVP ONE (10:45)
[2021-11-10] MEDS ORDERED: ONDANSETRON 4 MG/2 ML (SDV) Z0FRAN IVP PRN (10:45)
[2021-11-10] MEDS ORDERED: LACTATED RINGERS 1,000 ML IV PRN (10:45)
[2021-11-10] MEDS ORDERED: HYDROmorphone 2 MG/ML VIAL (DILAUDID) IV ONE (10:45)
[2021-11-10] MEDS ORDERED: PROMETHAZINE INJ 25 MG/ML (PHENERGAN) AMP IVP ONE (10:45)
[2021-11-10] MEDS ORDERED: morphine INJ 10 MG/ML 1ML (SYR OR VIAL) IVP ONE (10:45)
[2021-11-10] MEDS ORDERED: LIDOCAINE PF 2% 5 ML (XYLOCAINE) VIAL ONE (10:49)
[2021-11-10] MEDS ORDERED: SEVOFLURANE (ULTANE) 15 ML INHAL SOLN ONE ×2 (10:49→12:02)
[2021-11-10] MEDS ORDERED: fentaNYL INJ 100 MCG/2 ML AMP ONE (10:49)
[2021-11-10] MEDS ORDERED: ONDANSETRON 4 MG/2 ML (SDV) Z0FRAN ONE (10:49)
[2021-11-10] MEDS ORDERED: proPOfol 200 MG/20 ML (DIPRIVAN) VIAL IV ONE (10:49)
[2021-11-10] MEDS ORDERED: MIDAZOLAM 2 MG/2 ML (VERSED) VIAL ONE (10:49)
[2021-11-10] MEDS ORDERED: NEOSTIGMINE 3 MG/3 ML VIAL ONE (12:00)
[2021-11-10] MEDS ORDERED: GLYCOPYRROLATE 0.2 MG/ML (ROBINUL) 2 ML VIAL ONE (12:01)
--- NOTE | 2021-11-10 23:22 | OPERATIVE REPORT ---
DATE OF SERVICE: 11/10/2021 PREOPERATIVE DIAGNOSES: 1. Acute appendicitis. 2. Umbilical hernia versus umbilical lipoma. POSTOPERATIVE DIAGNOSES: Acute appendicitis, no perforation, umbilical lipoma. PROCEDURE: Laparoscopic appendectomy, excision of umbilical lipoma approximately 2 cm in size. SURGEON: Clark Dempsey MD. CYLINDRICAL MIXER: Mikel Pires APRN. ANESTHESIA: General endotracheal. ESTIMATED BLOOD LOSS: Minimal. FINDINGS: Acute appendicitis, no perforation, umbilical lipoma. DISPOSITION: The patient tolerated the procedure well. INDICATIONS: The patient is a 41-year-old female, who presented to the Emergency Department with a 2-day history of pain in the right lower abdominal quadrant. This was crampy in nature then initially mild; however, persisted and worsened over time. She was seen in the Emergency Department where a CT scan was performed, which did show inflammation of the appendix consistent with a noncomplicated appendicitis. She did not report any fever, no chills as well as no nausea, no vomiting or any diarrhea. DESCRIPTION OF PROCEDURE: The patient was brought to the operating room, laid supine on the table. After adequate IV pain and sedative medications and general endotracheal intubation, the abdomen was prepped and draped in standard surgical fashion. A 0.5% Marcaine with epinephrine was used to anesthetize overlying skin in the left upper abdominal quadrant and a transverse skin incision made using 15 blade. An 0 silk suture was applied to the medial aspect of the incision for retraction and a Veress needle inserted with a low opening pressure of 0 mmHg. The abdomen was then insufflated to 15 mmHg pressure. The Veress needle removed and a 5 mm XL trocar placed followed by a 5 mm 45-degree angle laparoscope visualizing the peritoneal cavity. A 4-quadrant abdominal exploration was performed. There was edematous appendix at the tip, no perforation identified. The remainder of the small bowel and colon appeared normal. Under direct visualization, we then proceeded to place a supraumbilical 10 mm port after the skin and peritoneal lining were anesthetized using 0.5% Marcaine with epinephrine and a transverse skin incision made using a 15 blade. There was no umbilical hernia identified. There was a subcutaneous lipoma identified approximately 2 cm in size. We then proceeded to place a suprapubic 5 mm port in a similar manner. The patient was then placed in Trendelenburg position as well as plane right side up, left side down. The appendix was retrocecal and the white lines of Toldt connective tissue fibers were taken down using electrocautery on hook instrument. The appendix was then retracted towards the anterior abdominal wall and a window created between the base of the appendix and the mesoappendix using a [place] dissector. The appendix was then stapled and transected at the cecal base using a JANEY 45 mm stapler with a 2.5 mm thickness load. The mesoappendix was then stapled and transected with the same stapler with a 2.0 mm thickness reload with visualization of good hemostasis. The appendix was removed through the 10 mm port site using an EndoCatch bag. The umbilical lipoma was then excised using electrocautery with visualization of good hemostasis. The lesion was approximately 2 cm in size. The fascia and peritoneum to the 10 mm port were then closed under direct visualization using a Ele-Aide device and an 0 Vicryl suture. The abdomen was then desufflated and remaining ports removed. All skin incisions were closed using 4-0 Monocryl running subcuticular sutures. Wounds were then cleaned and covered with Dermabond. The patient tolerated the procedure well. We will start IV normal pain medication as well as a clear liquid diet. When she is tolerating clears, has good pain control with oral pain medication and is ambulating well. We will discharge her home where she will be instructed to do no heavy lifting or exertion for the next two weeks. Job ID: [id number] DocumentID: [id number] Dictated Date: 11/10/2021 21:56:21 Pony Trimmer Date: 11/10/2021 23:21:49 Dictated By: CLARK DEMPSEY MD
--- NOTE | 2021-11-11 09:01 | Progress Note-Post Operative ---
Post-Operative Progess Note Surgeon (s)/Or Assistant (s) Surgeon CLARK DEMPSEY MD Or Assistant: talya pacheco BEARING MAKER Pre-Operative Diagnosis acute appendicitis. Post-Operative Diagnosis appendicitis, umbilical lipoma(2cm) Procedure & Operative Findings Date of Procedure 11/11/21 Procedure Performed/Findings laparoscopic appendectomy, excision umbilical lipoma(2cm) Anesthesia Type get Estimated Blood Loss Estimated blood loss (mL): minimal Specimens/Packing Specimens Removed appendix CLARK DEMPSEY MD Nov 11, 2021 09:01
== END 2021-11-10 16:57 | disposition home or self-care (01) ==
LOC: EDUNIT# 17:08 → ER 17:10 → 4TH 18:09
PROVIDERS: ADMIT Surgery; ATTEND Surgery
DX: K35.80 Unspecified acute appendicitis (principal); D17.1 Benign lipomatous neoplasm of skin and subcutaneous tissue of trunk; R59.0 Localized enlarged lymph nodes; E66.9 Obesity, unspecified; N39.0 Urinary tract infection, site not specified; Z68.33 Body mass index [BMI] 33.0-33.9, adult
CPT/HCPCS: 36415; 80053; 83690; 84703; 85025; 86141; 87081; 87636; 88304; 96374; 96375

== ENCOUNTER → 2022-10-08 | Outpatient (CLI) | payer OTHER ==
[~2022-10-08] MED LIST changes: +HYDR-3817 PO
== END ==
LOC: CARDFS 13:51
PROVIDERS: ATTEND Nurse Practitioner Family
DX: I34.0 Nonrheumatic mitral (valve) insufficiency (principal)
CPT/HCPCS: 93306

== ENCOUNTER → 2022-10-16 | Outpatient (CLI) | payer OTHER ==
[2022-10-16 14:24] VITALS: BP 151/86
--- NOTE | 2022-10-16 15:56 | Cardiology Stress Test Report ---
Stress Test Report Date of Procedure/Referring: Date of Procedure: Oct 16, 2022 [facility] Admitting Physician Admitting Physician: Attending Physician: Manda Rivera Aprn Indications: Tachycardia Baseline Heart Rate: 80 Baseline Blood Pressure: Blood Pressure Systolic: 151 Blood Pressure Diastolic: 86 Baseline EKG: Baseline EKG: NSR Summary/Conclusion: Summary: In summary, the patient started exercising with a baseline heart rate, blood pressure and EKG mentioned above Patient was able to exercise for a total of 2 minutes on Jaime protocol, METs 3.4 Maximum heart rate 161 Maximum blood pressure 206/50 Stress EKG, Minimal nondiagnostic changes Recovery EKG , Return to baseline Conclusion: 1. Poor exercise tolerance for only 2 minutes on Jaime protocol achieving target heart rate. 2. Occasional PVCs noted early in the stress test and during recovery. Minimal nondiagnostic EKG changes with exercise 3. Hypertensive response to exercise with peak blood pressure 206/50 return to baseline during recovery 4. Consider doing Lexiscan Myoview stress test if you are evaluating for any ischemia. Copy Copies To 1: [facility]/JAMEEL OWEN MD Oct 16, 2022 15:56
== END ==
LOC: CARD 14:05
PROVIDERS: ATTEND Nurse Practitioner Family
DX: R00.0 Tachycardia, unspecified (principal)
CPT/HCPCS: 93017

== ENCOUNTER → 2023-02-24 | Outpatient (CLI) | payer OTHER ==
[~2023-02-24] MED LIST changes: +REGADENOSON 0.4 MG/5 ML SYR (LEXISCAN) IV ONE
[2023-02-24] MEDS: CATHETER FLUSH 10 ML SYR IVP PRN ×2 (07:45→09:15)
[2023-02-24 09:16] VITALS: BP 124/87
--- NOTE | 2023-02-24 11:26 | Cardiology Stress Test Report ---
Stress Test Report Date of Procedure/Referring: Date of Procedure: Feb 24, 2023 PCP Manda Rivera Aprn Admitting Physician Admitting Physician: Attending Physician: Domonique Conklin Baseline Heart Rate: 87 Baseline Blood Pressure: Blood Pressure Systolic: 124 Blood Pressure Diastolic: 87 Baseline Vitals Vital Signs Date Time Temp Pulse Resp B/P (MAP) Pulse Ox O2 Delivery O2 Flow Rate FiO2 02/24/23 09:16 76 20 124/87 (99) 99 Room Air Baseline EKG: Baseline EKG: NSR Summary After explaining the procedure to the patient, she signed a consent and then brought to the stress nuclear laboratory. Patient received 0.4 mg Lexiscan for stress test, ECG, heart rate and blood pressure were monitored continuously. Resting and stress dose of radio tracer were injected, imaging was acquired and reviewed in short axis, horizontal long axis and vertical long axis views. TID: 0.97 SSS: 4 SDS: 4 EF: 50 Patient tolerated Lexiscan well Frequent PVCs and occasional APCs noted during test Breast attenuation with typical female pattern, no significant ischemia or infarction noted on SPECT images Normal left ventricular size, ejection fraction 50% Copy Copies To 1: [facility]/JAMEEL OWEN MD Feb 24, 2023 11:26
== END ==
LOC: CARD 07:24
PROVIDERS: ATTEND Physician Assistant
DX: I49.3 Ventricular premature depolarization (principal); I10 Essential (primary) hypertension; R07.89 Other chest pain
CPT/HCPCS: 78452; 93017